=== PATIENT | female | born 1965 | race Caucasian/White ===

== ENCOUNTER → 2017-01-02 | Outpatient (CLI) | payer OTHER | LOC: FIMAGING 11:00 | DX: Z12.31 Encounter for screening mammogram for malignant neoplasm of breast (principal) | CPT/HCPCS: G0202 ==

== ENCOUNTER 2017-10-03 10:09 | Emergency (ER) | payer OTHER ==
[2017-10-03] MEDS ORDERED: NS 1,000 ML IV ONE (10:27)
--- NOTE | 2017-10-03 10:28 | EDPHY ---
General - History Smoking Status: Never smoked Time Seen by Provider: 10/03/17 10:16 Narrative: CHIEF COMPLAINT: Rectal bleeding HISTORY OF PRESENT ILLNESS: Patient presents with complaints of rectal bleeding. She says this started approximately 6 days ago. It started with blood on the stool, and then developed to some blood immediately preceding stool in following the stool. There is some mucus with. She does have painful bowel movement and some rectal discomfort, but does not have any pelvic pain. She does have some flank pain on both sides. She has no nausea, vomiting or sweating. She has no chest pain or shortness of breath. No cough. The pain is described as very mild. Is much less than when she was diagnosed with ischemic colitis in 2010. At that time she had abdominal abscess that was treated conservatively with IV antibiotics and colonoscopy. No surgical intervention. She is concerned because of the symptomatology is similar to previous. She has no other associated complaints or modifying factors. REVIEW OF SYSTEMS: Ten systems reviewed and are negative unless otherwise noted in the HPI PCP: juan Palomares [place] SPECIALISTS: Electric Wheelchair Repairer at [facility] PAST MEDICAL HISTORY: Ischemic colitis, abdominal abscess PAST SURGICAL HISTORY: Colonoscopy, hysterectomy SOCIAL HISTORY: Nonsmoker. Lives independently with her spouse. FAMILY HISTORY: Noncontributory EXAMINATION General Appearance: Alert, no distress. Well-developed and well-nourished. Head: normocephalic, atraumatic Eyes: Pupils equal and round, no conjunctival pallor or injection ENT, Mouth: Mucous membranes moist Neck: Normal inspection, supple, non-tender Respiratory: Lungs are clear to auscultation Cardiovascular: Regular rate and rhythm Gastrointestinal: Abdomen is soft and nontender. No tympany rigidity. No guarding. No palpable mass. Rectal exam: Female RN (Chantel) present for entire exam. External exam only with note of external hemorrhoids. Digital rectal exam deferred until imaging performed. Back: non-tender, no bony abnormalities Neurological: A&O, nonfocal, normal gait Skin: Warm and dry, no rash. No petechiae. No purpura. Extremities: Nontender, no pedal edema Psychiatric: Mood and affect normal DIFFERENTIAL DIAGNOSES: Including but not limited to colitis, diverticulosis, diverticulitis, internal hemorrhoids, ischemic colitis, gastroenteritis, lower GI bleed MDM: 10:25 a.m. Rectal bleeding with some rectal discomfort. Patient has been on Augmentin for a week and is concerned because she has had a history of ischemic colitis in the past. She is requesting imaging abdomen pelvis as this is a similar symptomatology, but much earlier than previous evaluation. She has a benign abdominal examination with non thrombosed external hemorrhoids. She does not meet SIRS criteria. She is in no acute distress. I have ordered CT scan of her request, and I do not feel this is unreasonable given her history. 10:35 a.m. CBC is unremarkable, venous lactic acid is within normal limits at 0.8. 11:20 a.m. Notified by radiologist Dr. Todd. We discussed the CT scan findings including rectal and vaginal prolapse without any other significant acute findings. 11:30 a.m. Patient re-evaluated. I discussed the CT scan findings, normal laboratory studies. We discussed the possibility of internal hemorrhoids and I did offer and recommend anoscopy. She would like to defer this. I do feel this is reasonable given her vitals, exam, laboratory studies and presence of external hemorrhoids. I will treat her with suppositories in presumption of internal hemorrhoids. We discussed at length the risks, benefits and alternatives including colonoscopy. She would like to go home and follow up with her physicians next week. Complicating factors that she is leaving town for I would today. We discussed risks and benefits of this as well. I do feel she is stable to attempt this, that she may need to present to another emergency department if the bleeding increases or does not improve. She is verbalized understanding of this and would like to go home and try this suppositories. We also discussed that she will need to follow up with her primary care and blower operator for the rectal prolapse and vaginal prolapse. She will contact her established cat scanner operator on Thursday for further care. She is comfortable this plan and discharged in stable condition. SUPERVISION: Patient was independently examined, but I discussed the case with my secondary supervising physician Dr. Luo (Reza Ny) - Diagnostics Imaging Results: Imaging Impressions Abdomen CT 10/03/17 10:27 Impression:. 1. Chronic rectal and vaginal prolapse. 2. No CT evidence for active colitis or toxic negative colon. Results called and discussed with Reza Ny, at 10/03/2017 11:15 General information for patients regarding this examination can be found at [email or web address]. If you have questions or comments about this report, please contact me at [phone] (hospital) or [phone] (cell). - Objective Vital Signs: Initial Vital Signs Temperature (C) 97.7 F 10/03/17 10:11 Heart Rate 81 10/03/17 10:11 Respiratory Rate 18 10/03/17 10:11 Blood Pressure 113/73 10/03/17 10:11 O2 Sat (%) 96 10/03/17 10:11 O2 Delivery Mode Room Air Allergies/Adverse Reactions: codeine [Codeine] Allergy (Intermediate, Verified 10/03/17 10:10) Sulfa (Sulfonamide Antibiotics) Allergy (Verified 10/03/17 10:10) Home Medications: Medication Instructions Recorded Vivelle-Dot 0.025MG (*) 02/02/16 Hydrocortisone Acetate [Anucort-Hc] 25 mg RC BID #14 supp.rect 10/03/17 Laboratory Results: Laboratory Results 10/03/17 10:25 10/03/17 10:25 10/03/17 10/03/17 10/03/17 10:28 10:25 10:25 WBC RBC Hgb POC Hgb 14.6 gm/dL gm/dL (12.6-16.3) Hct POC Hct 43 % % (38-47) MCV MCH MCHC RDW Plt Count MPV Neut % (Auto) Lymph % (Auto) [place] % (Auto) Eos % (Auto) Baso % (Auto) Nucleat RBC Rel Count Absolute Neuts (auto) Absolute Lymphs (auto) Absolute Monos (auto) Absolute Eos (auto) Absolute Basos (auto) Absolute Nucleated RBC Immature Gran % Immature Gran # PT 12.9 SEC SEC (12.0-15.0) INR 0.95 (0.83-1.16) APTT 28.5 SEC SEC (23.0-38.0) VBG Lactic Acid POC Sodium 140 mEq/L mEq/L (135-145) Sodium 137 mEq/L mEq/L (135-145) POC Potassium 3.7 mEq/L mEq/L (3.3-5.0) Potassium 3.9 mEq/L mEq/L (3.3-5.0) POC Chloride 104 mEq/L mEq/L (97-110) Chloride 103 mEq/L mEq/L (97-110) Carbon Dioxide 27 mEq/l mEq/l (22-31) Anion Gap 7 mEq/L L mEq/L (8-16) POC BUN 11 mg/dL mg/dL (7-23) BUN 12 mg/dL mg/dL (7-23) Creatinine 0.9 mg/dL mg/dL (0.6-1.0) POC Creatinine 0.9 mg/dL mg/dL (0.6-1.0) Estimated GFR > 60 Glucose 88 mg/dL mg/dL (70-100) POC Glucose 94 mg/dL mg/dL (70-100) Calcium 9.5 mg/dL mg/dL (8.5-10.4) Total Bilirubin 0.6 mg/dL mg/dL (0.1-1.4) Conjugated Bilirubin 0.3 mg/dL mg/dL (0.0-0.5) Unconjugated Bilirubin 0.3 mg/dL mg/dL (0.0-1.1) AST 22 IU/L IU/L (14-46) ALT 28 IU/L IU/L (9-52) Alkaline Phosphatase 52 IU/L IU/L (38-126) Total Protein 6.9 g/dL g/dL (6.3-8.2) Albumin 4.2 g/dL g/dL (3.5-5.0) Lipase 187 IU/L IU/L (23-300) 10/03/17 10/03/17 10:25 10:25 WBC 6.17 10^3/uL 10^3/uL (3.80-9.50) RBC 5.00 10^6/uL 10^6/uL (4.18-5.33) Hgb 14.6 g/dL g/dL (12.6-16.3) POC Hgb Hct 43.3 % % (38.0-47.0) POC Hct MCV 86.6 fL fL (81.5-99.8) MCH 29.2 pg pg (27.9-34.1) MCHC 33.7 g/dL g/dL (32.4-36.7) RDW 13.2 % % (11.5-15.2) Plt Count 210 10^3/uL 10^3/uL (150-400) MPV 10.5 fL fL (8.7-11.7) Neut % (Auto) 51.5 % % (39.3-74.2) Lymph % (Auto) 36.1 % % (15.0-45.0) [place] % (Auto) 8.1 % % (4.5-13.0) Eos % (Auto) 3.4 % % (0.6-7.6) Baso % (Auto) 0.6 % % (0.3-1.7) Nucleat RBC Rel Count 0.0 % % (0.0-0.2) Absolute Neuts (auto) 3.17 10^3/uL 10^3/uL (1.70-6.50) Absolute Lymphs (auto) 2.23 10^3/uL 10^3/uL (1.00-3.00) Absolute Monos (auto) 0.50 10^3/uL 10^3/uL (0.30-0.80) Absolute Eos (auto) 0.21 10^3/uL 10^3/uL (0.03-0.40) Absolute Basos (auto) 0.04 10^3/uL 10^3/uL (0.02-0.10) Absolute Nucleated RBC 0.00 10^3/uL 10^3/uL (0-0.01) Immature Gran % 0.3 % % (0.0-1.1) Immature Gran # 0.02 10^3/uL 10^3/uL (0.00-0.10) PT INR APTT VBG Lactic Acid 0.8 mmol/L mmol/L (0.7-2.1) POC Sodium Sodium POC Potassium Potassium POC Chloride Chloride Carbon Dioxide Anion Gap POC BUN BUN Creatinine POC Creatinine Estimated GFR Glucose POC Glucose Calcium Total Bilirubin Conjugated Bilirubin Unconjugated Bilirubin AST ALT Alkaline Phosphatase Total Protein Albumin Lipase Medications Given: Discontinued Medications Sodium Chloride (Ns) 1,000 mls @ 0 mls/hr IV EDNOW ONE; Wide Open PRN Reason: Protocol Stop: 10/03/17 10:28 Last Admin: 10/03/17 10:33 Dose: 1,000 mls Point of Care Test Results: Chemistry 10/03/17 10:28 POC Sodium 140 mEq/L mEq/L (135-145) POC Potassium 3.7 mEq/L mEq/L (3.3-5.0) POC Chloride 104 mEq/L mEq/L (97-110) POC BUN 11 mg/dL mg/dL (7-23) POC Creatinine 0.9 mg/dL mg/dL (0.6-1.0) POC Glucose 94 mg/dL mg/dL (70-100) ISTAT H&H 10/03/17 10:28 POC Hgb 14.6 gm/dL gm/dL (12.6-16.3) POC Hct 43 % % (38-47) Departure - Departure Disposition: Home, Routine, Self-Care Clinical Impression: Rectal bleeding, External hemorrhoid Prolapse of female pelvic organs Qualifiers: Prolapse type: unspecified female genital prolapse Qualified Code(s): N81.9 - Female genital prolapse, unspecified Condition: Good Instructions: Rectal Bleeding (ED) Additional Instructions: 1. Suppositories as prescribed 2. Contact her primary care physician to discuss further care for the bleeding as well as the rectal vaginal prolapse 3. Contact your cat scanner operator to discuss the rectal bleeding or rectal prolapse 4. Present to emergency department for any continued bleeding, worsening bleeding, lightheadedness, dizziness, chest pain Referrals: AMANDA KRISHNAMURTHY [Primary Care Provider] - As per Instructions Prescriptions: Hydrocortisone Acetate [Anucort-Hc] 25 mg RC BID #14 supp.rect
[2017-10-03 10:34] LABS: PLATELET COUNT 210 10^3/uL (150-400)
[2017-10-03] MEDS ORDERED: IOPAMIDOL (ISOVUE-300) 100 ML BTL ONE (10:37)
[2017-10-03 10:45] LABS: INR 0.95 (0.83-1.16); PROTIME(PATIENT) 12.9 SEC (12.0-15.0)
[2017-10-03 11:54] VITALS: BP 104/79
== END 2017-10-03 11:54 | disposition home or self-care (01) ==
DX: K62.5 Hemorrhage of anus and rectum (principal); K64.4 Residual hemorrhoidal skin tags; N81.9 Female genital prolapse, unspecified; E86.9 Volume depletion, unspecified
CPT/HCPCS: 82435-PO; 82565-PO; 82947-PO; 84132-PO; 84295-PO; 84520-PO; 85014-PO; Q9967